=== PATIENT | male | born 2000 | race Hispanic/Latino ===

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

== ENCOUNTER 2020-06-27 13:30 | Emergency (ER) | payer OTHER | END 2020-06-27 14:18 | disposition home or self-care (01) | LOC: ERS 13:30 | DX: H61.23 Impacted cerumen, bilateral (principal) | CPT/HCPCS: 99281 ==